=== PATIENT | female | born 1950 | race Caucasian/White ===

== ENCOUNTER 2018-09-24 05:53 | Observation (INO) | payer MEDICARE ==
[~2018-09-24] VITALS: Ht 162.6 cm; Wt 88.6 kg
[~2018-09-24 05:53] MED LIST: CETI1TAB6 PO
[2018-09-24] MEDS ORDERED: LACTATED RINGERS 1,000 ML IV SCH (06:06)
[2018-09-24] MEDS ORDERED: VANCOMYCIN PMX 1GM/200ML 200 ML IV STA (06:28)
[2018-09-24] MEDS ORDERED: morphine SULFATE/PF 1 MG/ML, 10ML ONE (06:30)
[2018-09-24] MEDS ORDERED: VANCOMYCIN 1,000 MG ONE (06:30)
[2018-09-24] MEDS ORDERED: CEFAZOLIN 1,000 MG ONE ×2 (06:30→10:35)
[2018-09-24] MEDS ORDERED: ROPIvacaine/PF 0.2%, 20 ML ONE ×2 (06:30→08:28)
[2018-09-24] MEDS ORDERED: KETOROLAC 60 MG/2 ML ONE (06:30)
[2018-09-24] MEDS ORDERED: EPINEPHRINE 1 MG/ML, 1ML ONE (06:31)
[2018-09-24] MEDS ORDERED: BACITRACIN 50,000 UNIT ONE (06:31)
[2018-09-24] MEDS ORDERED: SODIUM CHLORIDE 0.9% 50 ML ONE (06:31)
[2018-09-24] MEDS ORDERED: GABAPENTIN 300 MG CAPSULE PO STA (06:42)
[2018-09-24] MEDS ORDERED: FENTANYL PF 250 MCG/5ML ONE ×2 (06:50→08:10)
[2018-09-24] MEDS ORDERED: MIDAZOLAM 1 MG/ML, 2ML ONE (06:50)
[2018-09-24] MEDS ORDERED: ACETAMINOPHEN 500 MG TABLET PO ONE (07:00)
[2018-09-24] MEDS ORDERED: TRANEXAMIC ACID 100 MG/ML, 10ML ONE (07:15)
[2018-09-24] MEDS ORDERED: HYDROmorphone 1 MG/ML, 1ML AMP ONE (09:41)
[2018-09-24] MEDS: HYDROmorphone 2 MG/ML, 1ML IVPush PRN ×3 (09:50→10:50)
[2018-09-24] MEDS ORDERED: HYDROcodone/APAP 7.5-325MG/15ML UDC PO PRN (10:00)
[2018-09-24] MEDS ORDERED: LABETALOL 5MG/ML, 20ML IV PRN (10:00)
[2018-09-24] MEDS ORDERED: MEPERIDINE/PF 25MG/0.5ML IVPush PRN (10:00)
[2018-09-24] MEDS ORDERED: PROMETHAZINE 12.5 MG SUPP PR PRN (10:00)
[2018-09-24] MEDS ORDERED: FENTANYL PF 100 MCG/2ML IV PRN (10:00)
[2018-09-24] MEDS ORDERED: MORPHINE SULFATE 4 MG/ML, 1ML IVPush PRN (10:00)
[2018-09-24] MEDS ORDERED: ONDANSETRON 2MG/ML, 2ML IV PRN ×2 (10:00→10:30)
[2018-09-24] MEDS ORDERED: PROMETHAZINE 25 MG/ML, 1ML IV PRN (10:00)
[2018-09-24] MEDS ORDERED: ONDANSETRON ODT 8 MG PO PRN (10:00)
[2018-09-24] MEDS ORDERED: hydrALAzine 20 MG/ML, 1ML IV PRN (10:00)
[2018-09-24] MEDS ORDERED: PROMETHAZINE 25 MG SUPP PR PRN (10:00)
[2018-09-24] MEDS ORDERED: PROMETHAZINE 25 MG/ML, 1ML IM PRN ×2 (10:00)
[2018-09-24] MEDS: D5%-0.45% NACL 1,000 ML IV SCH ×3 (10:02→20:02)
[2018-09-24] MEDS ORDERED: ACETAMINOPHEN 325 MG TABLET PO PRN (10:30)
[2018-09-24] MEDS ORDERED: VANCOMYCIN PMX 1GM/200ML 200 ML IVPB ONE (10:30)
[2018-09-24] MEDS ORDERED: LORazepam 2 MG/ML, 1ML IV PRN (10:30)
[2018-09-24] MEDS ORDERED: DIPHENHYDRAMINE 25 MG CAPSULE PO PRN (10:30)
[2018-09-24] MEDS ORDERED: TRANEXAMIC ACID 1,500 MG in SODIUM CHLORIDE 0.9% 100 ML IV ONE ×2 (10:30→13:30)
[2018-09-24] MEDS ORDERED: ZOLPIDEM 5MG TABLET PO PRN (10:30)
[2018-09-24] MEDS ORDERED: morphine SULFATE 10 MG/ML, 1ML IV PRN (10:30)
[2018-09-24] MEDS ORDERED: DEXAMETHASONE 4 MG/ML, 1ML ONE (10:35)
[2018-09-24] MEDS ORDERED: ROCURONIUM 10MG/ML,5ML ONE (10:35)
[2018-09-24] MEDS ORDERED: NEOSTIGMINE 1 MG/ML, 10ML ONE (10:35)
[2018-09-24] MEDS ORDERED: GLYCOPYRROLATE 0.2MG/1ML, 5ML ONE (10:35)
[2018-09-24] MEDS ORDERED: ONDANSETRON 2MG/ML, 2ML ONE (10:35)
[2018-09-24] MEDS ORDERED: PROPOFOL 10 MG/ML, 20ML ONE (10:35)
[2018-09-24 12:00] VITALS: BP 121/80
[2018-09-24] MEDS: HYDROcodone/APAP 5/325 TABLET PO PRN ×3 (13:34→21:48)
[2018-09-24] MEDS: CEFAZOLIN PMX 1GM/50ML 50 ML IVPB SCH ×2 (15:22→23:17)
[2018-09-24] MEDS: ASPIRIN 325 MG TABLET EC PO SCH (17:36)
[2018-09-24 18:58] VITALS: BP 100/67
[2018-09-24] MEDS: DOCUSATE 100 MG CAPSULE PO SCH (21:48)
[2018-09-24 23:45] VITALS: BP 105/57
[2018-09-25] MEDS: HYDROcodone/APAP 5/325 TABLET PO PRN ×4 (02:14→15:10)
[2018-09-25] MEDS: D5%-0.45% NACL 1,000 ML IV SCH ×2 (02:24→06:02)
[2018-09-25 04:06] VITALS: BP 104/63
[2018-09-25] MEDS: DOCUSATE 100 MG CAPSULE PO SCH (07:42)
[2018-09-25] MEDS: ASPIRIN 325 MG TABLET EC PO SCH (07:42)
[2018-09-25] MEDS: CEFAZOLIN PMX 1GM/50ML 50 ML IVPB SCH (07:42)
[2018-09-25] MEDS ORDERED: VANCOMYCIN PMX 1GM/200ML 200 ML IV ONE (08:00)
[2018-09-25 08:09] VITALS: BP 110/68
[2018-09-25 12:50] VITALS: BP 117/73
== END 2018-09-25 15:44 | disposition home or self-care (01) ==
LOC: OUT 05:53 → ORIP 09:27 → 4NOR 11:30 → DCLOUNGE 09-25 15:34
PROVIDERS: ADMIT Orthopaedic Surgery; ATTEND Orthopaedic Surgery
DX: M17.12 Unilateral primary osteoarthritis, left knee (principal)
CPT/HCPCS: 27447; 36415; 73560; 85018; 96365; 96366; 96367; 96375; 97116; 97150; 97161; 97165; C1713; C1776; G0378; J0171; J0690; J1100; J1170; J1885; J2250; J2270; J2274; J2405; J2704; J2710; J2795; J3010; J3370; J3490; J7120